=== PATIENT | female | born 1995 | race Two or more races ===

== ENCOUNTER 2018-06-12 10:56 | Outpatient (CLI) | payer OTHER ==
[~2018-06-12] VITALS: Ht 162.6 cm; Wt 74.0 kg
[2018-06-12 11:20] VITALS: BP 103/62
== END 2018-06-12 13:00 | disposition home or self-care (01) ==
LOC: LDOP 10:56
PROVIDERS: ATTEND Obstetrics & Gynecology
DX: O42.913 Preterm premature rupture of membranes, unspecified as to length of time between rupture and onset of labor, third trimester (principal); Z3A.30 30 weeks gestation of pregnancy
CPT/HCPCS: 59025; 89060; 99201; G0463; Q0114